=== PATIENT | male | born 1975 | race Two or more races ===

== ENCOUNTER 2021-02-22 17:37 | Inpatient (IN) | payer OTHER ==
[~2021-02-22] VITALS: Ht 167.6 cm; Wt 66.8 kg
[2021-02-22] MEDS ORDERED: BUPR-96 PO (17:52)
[2021-02-22] MEDS ORDERED: OLAN10TA3 PO (17:52)
[2021-02-22] MEDS ORDERED: TRAZ-182 PO (17:52)
[2021-02-22] MEDS ORDERED: OLANZAPINE 5 MG TABLET PO ONE (18:00)
--- NOTE | 2021-02-22 18:00 | NUR ---
pt being hyper verbal, not making sense.
[2021-02-22] MEDS ORDERED: OLANZAPINE 5 MG TABLET ONE ×2 (18:04→18:13)
[2021-02-22 18:50] LABS: BASOPHILS # (AUTO) 0.1 K/uL (0.0-8.0); BASOPHILS % (AUTO) 0.4 % (0.0-2.0); HEMATOCRIT 48.7 % (36.7-47.1); HEMOGLOBIN 15.8 g/dL (12.5-16.3); LYMPHOCYTES # (AUTO) 2.1 K/uL (20.0-40.0); LYMPHOCYTES % (AUTO) 9.2 % (20.5-51.5); MEAN CORPUSCULAR HEMOGLOBIN 27.6 uug (23.8-33.4); MEAN CORPUSCULAR HGB CONC 32 g/dL (32.5-36.3); MONOCYTES # (AUTO) 1.1 K/uL (2.0-10.0); MONOCYTES % (AUTO) 4.9 % (0.0-11.0); NEUTROPHILS % (AUTO) 85.5 % (38.5-71.5); PLATELET COUNT (AUTO) 330 K/uL (152-348); RED BLOOD CELL COUNT(AUTO) 5.73 MIL/uL (4.06-5.63); WHITE BLOOD COUNT (AUTO) 22.2 K/uL (3.6-10.2)
[2021-02-22 18:51] LABS: CARBON DIOXIDE 21 mmol/L (21-32); CHLORIDE 100 mmol/L (98-107); CREATININE 1.3 mg/dL (0.6-1.3); GLUCOSE 183 mg/dL (74-106); POTASSIUM 3.6 mmol/L (3.5-5.1); UREA NITROGEN, BLOOD 14 mg/dL (7-18)
[2021-02-22 18:58] LABS: ALANINE AMINOTRANSFERASE 45 U/L (16-63); ALKALINE PHOSPHATASE 102 U/L (50-136); ASPARTATE AMINOTRANSFERASE 31 U/L (15-37); BILIRUBIN,DIRECT 0.1 mg/dL (0.0-0.2); BILIRUBIN,TOTAL 0.3 mg/dL (0.2-1.0); TOTAL PROTEIN, SERUM 8.9 g/dL (6.4-8.2)
[2021-02-22 18:59] LABS: ACETAMINOPHEN < 2.0 ug/mL (10-30)
[2021-02-22] MEDS ORDERED: LORAZEPAM 0.5 MG TABLET PO ONE (19:00)
--- NOTE | 2021-02-22 19:05 | NUR ---
Report received from Henry WALKER. Patient in room mildly agitated, trying to use the urinal.
[2021-02-22 19:09] LABS: ETHANOL < 3 MG/DL (0-0)
[2021-02-22] MEDS ORDERED: IV NORMAL SALINE 1000 ML BAG IV ONE ×2 (19:15→20:30)
[2021-02-22] MEDS ORDERED: LORAZEPAM 1 MG TABLET ONE (19:24)
--- NOTE | 2021-02-22 19:51 | NUR ---
Patient pulled out IV; new IV started to LW. Patient monitored closely. Still mildly agitated and speaks in repeatitive fashion.
--- NOTE | 2021-02-22 20:00 | NUR ---
Lab called lactic acid=4.7; Dr. Mcpherson informed. Patient will be admitted to Tele. Airport Clerk notified.
--- NOTE | 2021-02-22 20:05 | NUR ---
Dr. Mcpherson spoke to Dr. Toscano re: admission.
--- NOTE | 2021-02-22 20:10 | NUR ---
Pit Operator informed the need for a sitter as patient came in with suicide ideation and need psyche eval. Pit Operator Cori stated a sitter will be provided.
[2021-02-22] MEDS ORDERED: PIPERACILLIN SODIUM/TAZOBACTAM 3.375 G in IV DEXTROSE 5% 50 ML IV ONE (20:15)
[2021-02-22] MEDS ORDERED: PIPERACILLIN SODIUM/TAZO 3.375 GM VIAL ONE (20:20)
--- NOTE | 2021-02-22 20:20 | NUR ---
Spoke to Frannie mcghee RN re: patient's admission including need for sitter and psyche eval. Patient still agitated, hyper verbal but cooperative.
[2021-02-22] MEDS ORDERED: ONDANSETRON 4 MG/2 ML VIAL IV PRN (20:45)
[2021-02-22] MEDS ORDERED: ACETAMINOPHEN 325 MG TABLET PO PRN (20:45)
[2021-02-22] MEDS ORDERED: MAGNESIUM HYDROXIDE 30 ML LIQUID UDC PO PRN (20:45)
[2021-02-22] MEDS ORDERED: HYDROCODONE/APAP 5-325MG TABLET PO PRN (20:45)
--- NOTE | 2021-02-22 20:47 | NUR ---
Report given to Teetee WALKER.
--- NOTE | 2021-02-22 21:10 | NUR ---
Patient tachycardic. BP 156/84, O2 sat 98% on room air. Still mildly agitated, talkative. Dr. Mcpherson informed. Medicated with Ativan IV and Tylenol po.
[2021-02-22] MEDS ORDERED: ACETAMINOPHEN 650 MG/20.3 ML LIQUID UDC PO STA (21:21)
[2021-02-22] MEDS: LORAZEPAM 2 MG/1 ML VIAL IV PRN (21:31)
[2021-02-22] MEDS ORDERED: ACETAMINOPHEN 325 MG TABLET ONE (21:34)
[2021-02-22] MEDS ORDERED: LORAZEPAM 2 MG/1 ML VIAL ONE (21:34)
--- NOTE | 2021-02-22 21:34 | NUR ---
Pt. admitted to Tele room 302 , under care of Dr. Bryce Toscano. Belongs List completed
--- NOTE | 2021-02-22 21:36 | NUR ---
Patient unable to assist with medication recon. No records were able to be found that came with the patient that state the medication he is on.
--- NOTE | 2021-02-22 21:40 | NUR ---
2L NS and Zosyn IVPB completed to IV site prior to patient's transfer. Nocz=223.6 orally; Tylenol 650 mg po given @ 2130. Patient remains mildly agitated, with suicidal ideations and flight of ideas but cooperative.
[2021-02-22] MEDS: IV NS 1000 ML 1,000 ML IV PRN (22:07)
[2021-02-22] MEDS ORDERED: LORAZEPAM 2 MG/1 ML VIAL IV PRN ×2 (22:30→23:45)
[2021-02-22 22:59] VITALS: BP 141/79
[2021-02-22 23:03] LABS: *BILIRUBIN,URIN NEGATIVE (NEGATIVE); *CLARITY,URINE CLEAR (CLEAR); *COLOR,URINE YELLOW (YELLOW); *KETONES,URINE NEGATIVE (NEGATIVE); *UROBILINOGEN,URINE 0.2 E.U./dl (NORMAL); LEUKOCYTE ESTERASE ,URINE NEGATIVE (NEGATIVE); NITRITE, URINE NEGATIVE (NEGATIVE); UGLUCOSE NEGATIVE (NEGATIVE)
[2021-02-22 23:04] LABS: *BLOOD, URINE TRACE (NEGATIVE)
--- NOTE | 2021-02-22 23:04 | NUR ---
Admitted a 45 years old female with Dx of Lactic acidosis at 0. Patient originally arrived at the ER for SI, hearing voices, telling him to kill himself and other people. Stated he is still hearing voices telling him the same thing, but no denies any plan. 1:1 sitter at bedside. Patient was found to be septic with Lactic acid of 4.7 initially and WBC of 22.2. Latest lactic acid is 2.7. Trending down as expected. Dr. Toscano aware. Pt was also place for psych eval. and crisis team evaluation. Telephone call to Crisis team Art and made aware. Stated he will come and see pt erick. Also obtain order of Ativan 1mg IV q4 hrs PRN for anxiety. Patient gets easily anxious and talking no-stop, rambling from one subject to another. Able to answer simple questions. Dr. Toscano, with no order to continue antibiotics at this time. IV site on left wrist intact and patent. IVF started per order. Sinus tachy on tele between 120-130/min. Routine admission care done. Plan of care initiated. Safety measure initiated. Continue to monitor.
[2021-02-22 23:10] LABS: BACTERIA,URINE NONE SEEN /HPF (NONE SEEN); RBC,URINE 0-3 /HPF (0-3); SQUAMOUS EPITHELIAL CELL,UR FEW /HPF (NONE SEEN); URINE AMORPHOUS URATE MODERATE /HPF; WBC,URINE 0-3 /HPF (0-3)
[2021-02-22 23:19] LABS: *AMPHETAMINE, URINE POSITIVE (NEGATIVE); *CANNABINOID, URINE NEGATIVE (NEGATIVE); *COCCAINE, URINE NEGATIVE (NEGATIVE); *OPIATE, URINE NEGATIVE (NEGATIVE); *PHENCYCLIDINE SCREEN,URINE NEGATIVE (NEGATIVE)
[2021-02-22] MEDS ORDERED: diphenhydrAMINE 50 MG/1 ML VIAL IM PRN (23:45)
[2021-02-22] MEDS ORDERED: HALOPERIDOL LACTATE 5 MG/1 ML VIAL IM PRN (23:45)
--- NOTE | 2021-02-22 23:49 | NUR ---
Dr Chang her for psych eval. into visit with orders given and will carry out.
[2021-02-22] MEDS: DIVALPROEX 250 MG TABLET.DR PO SCH (23:51)
[2021-02-22] MEDS: BENZTROPINE MESYLATE 1 MG TABLET PO SCH (23:51)
[2021-02-22] MEDS: HALOPERIDOL 5 MG TABLET PO SCH (23:51)
[2021-02-23 00:27] VITALS: BP 122/74
[2021-02-23] MEDS: LORAZEPAM 2 MG/1 ML VIAL IV PRN (01:43)
[2021-02-23 05:40] VITALS: BP 133/72
[2021-02-23 05:42] LABS: BASOPHILS % (AUTO) 0.2 % (0.0-2.0); EOSINOPHILS # (AUTO) 0.1 K/uL (0.0-0.7); EOSINOPHILS % (AUTO) 0.5 % (0.0-7.0); HEMATOCRIT 39.2 % (36.7-47.1); HEMOGLOBIN 12.8 g/dL (12.5-16.3); LYMPHOCYTES # (AUTO) 2.3 K/uL (20.0-40.0); LYMPHOCYTES % (AUTO) 18.5 % (20.5-51.5); MEAN CORPUSCULAR HEMOGLOBIN 27.7 uug (23.8-33.4); MEAN CORPUSCULAR HGB CONC 33 g/dL (32.5-36.3); MONOCYTES % (AUTO) 7.6 % (0.0-11.0); NEUTROPHILS # (AUTO) 9.2 K/uL (1.8-8.9); NEUTROPHILS % (AUTO) 73.2 % (38.5-71.5); PLATELET COUNT (AUTO) 230 K/uL (152-348); RED BLOOD CELL COUNT(AUTO) 4.61 MIL/uL (4.06-5.63); WHITE BLOOD COUNT (AUTO) 12.6 K/uL (3.6-10.2)
[2021-02-23 05:54] LABS: BILIRUBIN,TOTAL 0.5 mg/dL (0.2-1.0); MAGNESIUM 2.1 mg/dL (1.8-2.4); PHOSPHOROUS 3.5 mg/dL (2.5-4.9); POTASSIUM 3.8 mmol/L (3.5-5.1); TOTAL PROTEIN, SERUM 6.8 g/dL (6.4-8.2)
[2021-02-23 05:59] LABS: THYROID STIMULATING HORMONE 1.233 mIU/mL (0.358-3.740)
--- NOTE | 2021-02-23 06:10 | NUR ---
Telephone call from lab/[facility] and reported Lactic acid of 2.1.
--- NOTE | 2021-02-23 06:17 | NUR ---
Patient slept very little. Awake most of the night, still with periods of anxiety, hyper and talking much. No aggressive behavior. Cooperative with care. IV site on left wrist remains intact and patent. IVF infusing. Sinus rhythm to sinus tachy on tele between 90-110/min. Denies any pain or SOB. Needs attended to and met. Safety measure maintained. 1:1 sitter on site.
[2021-02-23] MEDS: BENZTROPINE MESYLATE 1 MG TABLET PO SCH (08:00)
[2021-02-23] MEDS: HALOPERIDOL 5 MG TABLET PO SCH (08:00)
[2021-02-23] MEDS: DIVALPROEX 250 MG TABLET.DR PO SCH (08:00)
[2021-02-23 08:14] VITALS: BP 137/82
--- NOTE | 2021-02-23 09:51 | NUR ---
Patient verbalized increase agitation and requested "something for my anxiety." Offered Ativan PRN. Patient agrees. After administration of ativan, patient states, "I don't need it anymore. I need to go to [place] to see my sister." Discussed with patient importance of staying until medically cleared. Agrees to wait until doctor speaks with him about plan of care. Request to remove IV line, came into an agreement to disconnect IV fluids for now and keep IV line intact. 1:1 sitter at bedside for safety. Will continue to monitor.
--- NOTE | 2021-02-23 10:03 | NUR ---
Spoke with Art, crisis team, on the phone and gave report about patient. States he will come see patient later on today.
--- NOTE | 2021-02-23 10:41 | NUR ---
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 Removed and replaced monitor 3x with no success. Informed border patrol officer tech and will inform MD. Will keep it off at this time and will try to place monitor in 30 minutes.
[2021-02-23 11:23] VITALS: BP 125/72
--- NOTE | 2021-02-23 11:30 | NUR ---
Seen by Art from Crisis team. Patient not appropriate for a 5150 hold, per crisis team note.
--- NOTE | 2021-02-23 11:45 | NUR ---
1:1 michel d/c for patient
[2021-02-23] MEDS: IV NS 1000 ML 1,000 ML IV PRN (11:49)
--- NOTE | 2021-02-23 12:15 | NUR ---
Patient states, "I want to leave against medical advice," as he removes his IV line. Wiped off blood from patient wrist and checked for bleeding. No s/s of excessive bleeding. Discussed with patient benefits of staying in the hospital and risk of leaving against medical advice. Patient states, "It's okay. I want to leave. You guys can't keep me here anyway." Patient agrees to sign AMA form. Removed ID band. Escorted patient out of hospital, walking with steady gait.
== END 2021-02-23 12:15 | disposition left against medical advice (07) | DRG 720 ==
LOC: ER 17:39 → TELE3 20:54
DX: A41.9 Sepsis, unspecified organism (principal); N17.0 Acute kidney failure with tubular necrosis; G93.40 Encephalopathy, unspecified; R65.20 Severe sepsis without septic shock; R00.0 Tachycardia, unspecified; Z20.822 Contact with and (suspected) exposure to COVID-19; G03.9 Meningitis, unspecified; F31.2 Bipolar disorder, current episode manic severe with psychotic features
CPT/HCPCS: 36415; 70030-TC; 71045; 83605; 83735; 84100; 84443; 85025; 87040; 93005; A4663; G0378; G0480; J2060; J2543; J3490; J7030; J7060